=== PATIENT | female | born 1935 | race African-American/Black ===

== ENCOUNTER 2023-12-29 17:26 | Emergency (ER) | payer SELFPAY ==
[2023-12-29 17:39] VITALS: BP 184/66; PULSE 83; RESP 17; TEMP 98.3; BMI 17.2
[2023-12-29 18:58] LABS: BASO % 0.8 % (0-2.0); EOS % 3.3 % (0-4.5); HEMATOCRIT 35.4 % (32.4-45.2); HEMOGLOBIN 11.8 GM/dL (10.7-15.3); LYMPH % 33.1 % (8-40); MCH 29.1 pg (25.7-33.7); MCHC 33.3 g/dl (32.0-36.0); MEAN CELL VOLUME 87.4 fl (80-96); MEAN PLT VOLUME 8.6 fl (7.5-11.1); MONO % 7.7 % (3.8-10.2); NEUT % 55.1 % (42.8-82.8); PLATELET COUNT 234 10^3/uL (134-434); RBC 4.05 M/mm3 (3.60-5.2); RDW 16.2 % (11.6-15.6)
[2023-12-29 19:01] LABS: CALCIUM 9.4 mg/dL (8.5-10.1); MAGNESIUM 2.1 mg/dL (1.8-2.4)
[2023-12-29 19:03] LABS: ALBUMIN 3.6 g/dl (3.4-5.0); BLOOD UREA NITROGEN 19.1 mg/dL (7-18)
[2023-12-29 19:05] LABS: PHOSPHOROUS 2.9 mg/dL (2.5-4.9)
[2023-12-29] MEDS: ACETAMINOPHEN 1000 MG/100 ML BAG IVPB ONE (19:05)
[2023-12-29 19:06] LABS: CREATININE 1.1 mg/dL (0.55-1.3)
[2023-12-29 19:07] LABS: BILIRUBIN,TOTAL 0.3 mg/dL (0.2-1)
[2023-12-29 19:08] LABS: TOT PROT 7.2 g/dl (6.4-8.2)
[2023-12-29 19:14] LABS: INR 1.2 (0.83-1.09); PROTHROMBIN TIME (PATIENT) 13.7 SEC (9.7-13.0)
[2023-12-29 19:17] LABS: ACTIVATED PTT 31.7 SECONDS (25.2-36.5)
[2023-12-29] MEDS ORDERED: ACETAMINOPHEN 325 MG TABLET (FP) ONE (20:05)
[2023-12-29] MEDS: ACETAMINOPHEN 325 MG TABLET (FP) PO ONE (20:12)
== END 2023-12-29 21:42 | disposition left against medical advice (07) ==
LOC: JER 17:26
DX: R07.2 Precordial pain (principal); M79.662 Pain in left lower leg; I10 Essential (primary) hypertension; R60.0 Localized edema; Z20.822 Contact with and (suspected) exposure to COVID-19
CPT/HCPCS: 0241U-QW; 36415; 71045-TC-FY; 73610-TC-LT-FY; 73630-TC-LT; 80053; 83735; 84100; 84484; 85025; 85610; 85730; 86850; 86900; 86901; 93005; 93010; 93971-TC; 99285-25